=== PATIENT | male | born 1980 | race Hispanic/Latino ===

== ENCOUNTER 2018-06-24 04:58 | Emergency (ER) | payer SELFPAY ==
[2018-06-24 05:06] VITALS: RESP 18
--- NOTE | 2018-06-24 05:35 | ED PDOC ---
Arrival/HPI - General Chief Complaint: Back Pain Time Seen by Provider: 06/24/18 05:20 Historian: Patient - History of Present Illness Narrative History of Present Illness (Text): 06/24/18 05:31 38 year old male, with no significant past medial history, presents to the emergency department with right flank pain. Patient states pain began suddenly at 01:00. Patient informs pain soon subsided and he feels better. Patient is un sure what caused the pain and would like evaluation. Patient denies any associated dysuria, or hematuria. Patient does inform of some associated nausea. Patient denies any fevers, chills, headache, dizziness, chest pain, shortness of breath, cough, vomiting, diarrhea, neck pain, or any other complaint. Time/Duration: Prior to Arrival, 4-6 hours Symptom Onset: Sudden Symptom Course: Improving Quality: Tightness Activities at Onset: Light Context: Home Past Medical History - Provider Review Nursing Documentation Reviewed: Yes - Infectious Disease Hx of Infectious Diseases: None - Cardiac Hx Cardiac Disorders: No - Pulmonary Hx Respiratory Disorders: No - Psychiatric Hx Substance Use: No Family/Social History - Physician Review Nursing Documentation Reviewed: Yes Family/Social History: No Known Family HX Smoking Status: Current Some Days Smoker Hx Alcohol Use: Yes Frequency of alcohol use: Socially Hx Substance Use: No Allergies/Home Meds Allergies/Adverse Reactions: Allergies No Known Allergies Allergy (Verified 06/24/18 05:03) Review of Systems - Patients Enrolled in [employer] [X]: A conversation was conducted with the primary medical doctor. - Physician Review All systems were reviewed & negative as marked: Yes - Review of Systems Constitutional: absent: Fevers, Night Sweats Cardiovascular: absent: Chest Pain Gastrointestinal: Abdominal Pain (right flank), Nausea. absent: Diarrhea, Vomiting Genitourinary Male: absent: Dysuria, Hematuria Musculoskeletal: absent: Neck Pain Neurological: absent: Headache, Dizziness Physical Exam - Physical Exam Narrative Physical Exam (Text): 06/24/18 05:36 Gen: VS reviewed, alert, well developed, well nourished, nontoxic, mild distress. ENT: normal pharynx. Eye: EOMI, PERRL. Neck: no JVD, supple, no adenopathy. CV: regular rate, regular rhythm, no rubs, no murmur, no gallops, S1, S2, pulses equal and strong. Pulm: no distress, clear to auscultation, no wheeze, no rhonchi, breath sounds equal, no rales. Abd: soft, nontender, no guarding, no rebound, no rigidity, normal bowel sounds. Ext: no edema. Skin: good color, no rash, no cyanosis. Psych: responds appropriately to questions, normal affect. Neuro: oriented x 3, CN2-12 intact grossly, motor intact, sensation intact. Vital Signs Reviewed: Yes Vital Signs Temp Pulse Resp BP Pulse Ox 06/24/18 05:05 97.7 F 52 L 18 147/83 99 Temperature: Afebrile Blood Pressure: Normal Pulse: Regular Respiratory Rate: Normal Appearance: Positive for: Well-Appearing, Non-Toxic, Comfortable Pain Distress: None Mental Status: Positive for: Alert and Oriented X 3 Medical Decision Making ED Course and Treatment: 06/24/18 05:37 Impression: 38 year old male presents with right flank pain Plan: -- CT Abd & Pelvis -- CMP -- Urine cultures -- Urinalysis -- Reassess and disposition Prior Visits: Notes and results from previous visits were reviewed. Progress Notes: 06/24/18 07:16 patient was seen for transient right sided loin to groin pain, CT suggestive of recent passed stone with hydro, no uti, labs ok, stable for dc. - Scribe Statement The provider has reviewed the documentation as recorded by the Charlie Francisco Provider Scribe Attestation: All medical record entries made by the Scribe were at my direction and personally dictated by me. I have reviewed the chart and agree that the record accurately reflects my personal performance of the history, physical exam, medical decision making, and the department course for this patient. I have also personally directed, reviewed, and agree with the discharge instructions and disposition. Disposition/Present on Arrival - Present on Arrival Any Indicators Present on Arrival: No History of DVT/PE: No History of Uncontrolled Diabetes: No Urinary Catheter: No History of Decub. Ulcer: No History Surgical Site Infection Following: None - Disposition Have Diagnosis and Disposition been Completed?: Yes Diagnosis: Hydronephrosis, Renal colic on right side Disposition: HOME/ ROUTINE Disposition Time: 07:17 Patient Plan: Discharge Condition: STABLE Discharge Instructions (ExitCare): Renal Colic, Hydronephrosis in Adults Additional Instructions: your CT scan shows a possible recently passed kidney stone. stay well hydrated (water). return for any new or worsening symptoms especially uncontrolled pain, persistent vomiting, or fever greater than 100.4. Prescriptions: Ibuprofen [Motrin Tab] 600 mg PO QID #42 tab Ondansetron [Zofran] 4 mg PO Q8H #12 tab Forms: [email or web address] (K[place]z)
[2018-06-24] MEDS ORDERED: Sodium Chloride 0.9% 1,000 ML IV SCH (05:45)
[2018-06-24 05:56] LABS: BASO # 0.05 K/mm3 (0.0-2.0); BASO % 0.6 % (0.0-3.0); EOS # 0.2 (0.0-0.7); EOS % 1.7 % (1.5-5.0); HEMOGLOBIN 16.1 g/dL (14.0-18.0); LYMPH # 1.9 (1.2-3.4); LYMPH % 22.1 % (22.0-35.0); MEAN CELL VOLUME 86.8 fl (80.0-105.0); MEAN CORPUSCULAR HEMOGLOBIN 29.5 pg (25.0-35.0); MEAN PLATELET VOLUME 11.4 fl (7.0-11.0); MONO # 0.6 (0.1-0.6); MONO % 6.9 % (1.0-6.0); RBC 5.46 10^6/uL (3.5-6.1); RED CELL DISTRIBUTION WIDTH 12.7 % (11.5-14.5); WHITE BLOOD COUNT 8.6 10^3/uL (4.5-11.0)
[2018-06-24 06:49] LABS: URINE BILIRUBIN NEGATIVE (NEGATIVE); URINE BLOOD NEGATIVE (NEGATIVE); URINE GLUCOSE (UA) NEGATIVE (NEGATIVE); URINE LEUKOCYTE ESTERASE NEGATIVE Leu/uL (NEGATIVE); URINE PROTEIN NEGATIVE mg/dL (<30 mg/dL); URINE UROBILINOGEN 0.2 E.U./dL (<1 E.U./dL)
[2018-06-24 06:50] LABS: URINE APPEARANCE CLEAR (CLEAR); URINE COLOR YELLOW (YELLOW)
[2018-06-24 07:12] LABS: ALB/GLOB RATIO 1.6 (1.1-1.8); ALBUMIN 4.5 g/dL (3.0-4.8); ALT/SGPT 27 U/L (7-56); AST/SGOT 27 U/L (17-59); BLOOD UREA NITROGEN 21 mg/dL (7-21); CALCIUM 9.5 mg/dL (8.4-10.5); GFR NON-AFRICAN AMERICAN > 60
[2018-06-24 07:35] VITALS: BP 113/59; PULSE 69; TEMP 98; O2SAT 96
--- NOTE | 2018-06-24 08:23 | CT ---
Date of service: 06/24/2018 PROCEDURE: CT Abdomen and Pelvis without intravenous contrast HISTORY: right flank pain, stone? COMPARISON: None. TECHNIQUE: Without contrast.. Contrast dose: Radiation dose: Total exam DLP = 795.36 mGy-cm. This CT exam was performed using one or more of the following dose reduction techniques: Automated exposure control, adjustment of the mA and/or kV according to patient size, and/or use of iterative reconstruction technique. FINDINGS: LOWER THORAX: Unremarkable. LIVER: Unremarkable. No gross lesion or ductal dilatation. GALLBLADDER AND BILE DUCTS: Unremarkable. PANCREAS: Unremarkable. No gross lesion or ductal dilatation. SPLEEN: Unremarkable. ADRENALS: Unremarkable. No mass. KIDNEYS AND URETERS: There is minimal periureteral stranding on the right which may be secondary to a recently passed stone. There are no stones seen in the ureter or bladder. Mild bilateral hydronephrosis without perinephric stranding. This could be secondary to chronic UPJ obstruction. This is an anatomic variation. VASCULATURE: Unremarkable. No aortic aneurysm. No aortic atherosclerotic calcification or mural plaque present. BOWEL: Unremarkable. No obstruction. No gross mural thickening. APPENDIX: Unremarkable. Normal appendix. PERITONEUM: Unremarkable. No free fluid. No free air. LYMPH NODES: Unremarkable. No enlarged lymph nodes. BLADDER: Unremarkable. REPRODUCTIVE: Unremarkable. BONES: No acute fracture. OTHER FINDINGS: The report concurs with the preliminary [facility] report IMPRESSION: There is minimal periureteral stranding on the right which may be secondary to a recently passed stone. There are no stones seen in the ureter or bladder. Mild bilateral hydronephrosis without perinephric stranding. This could be secondary to chronic UPJ obstruction. This is an anatomic variation.
== END 2018-06-24 07:35 | disposition home or self-care (01) ==
LOC: ED 04:58
DX: N13.30 Unspecified hydronephrosis (principal); N23 Unspecified renal colic